=== PATIENT | male | born 1965 | race Caucasian/White ===

== ENCOUNTER → 2016-03-06 | Outpatient (CLI) | payer OTHER ==
--- NOTE | 2016-03-06 12:23 | KCIC ---
PROCEDURE MRI cervical spine without contrast. HISTORY Cervicalgia, radiculopathy, neck pain with pain into the left shoulder and arm for a few years TECHNIQUE Sagittal and axial T2, sagittal T1, sagittal STIR images were acquired of the cervical spine Contrast: None COMPARISON None FINDINGS Cervical cord caliber is within normal limits, no convincing focal signal abnormality allowing for artifact. There is no significant abnormality of the cervical medullary junction. Cervical vertebral body stature is maintained. There is straightening of the cervical spine. There is negligible anterior spondylolisthesis at C2-3. There is mild to moderate degenerative disc disease C5-C6, minimally at C4-5 and C6-7 and mild disc desiccation at other levels. There is no significant focal marrow edema. C2-3: Spinal canal and the neural foramina are adequate. C3-4: Spinal canal and neural foramina are adequate. There is negligible disc osteophyte complex. C4-5: There is anterior radial tear. There is minimal disc osteophyte complex. There is mild indentation upon the ventral thecal sac greatest in the far right lateral recess although spinal canal overall adequate. There is mild right uncovertebral degenerative change. Neural foramina are not significantly narrowed. C5-C6: There is a broad posterior disc osteophyte complex and shallow bulge. Central canal is borderline at 10 millimeters. There is mild uncovertebral degenerative change, also right greater than left facet degenerative change. There is very mild narrowing of the left neural foramen, right neural foramen adequate. C6-7: There is a minimal disc osteophyte complex and bulge. Central canal is adequate 11 millimeters. 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 Neural foramina are overall adequate. 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 Spinal canal and neural foramina are adequate. IMPRESSION 1. There is mild to moderate degenerative disc disease at C5-C6, to a lesser degree at C4-5 and C6-7. There is mild spondylosis. 2. There is no significant cervical spinal stenosis, mild indentation upon the ventral thecal sac by disc osteophyte complexes and bulges most notable at C5-C6. There is no significant cervical neural foramina compromise, minimal narrowing on the left at C5-C6. Electronically signed by: Cornelio Pittman MD (Mar 06, 2016 12:21:27)
== END | disposition home or self-care (01) ==
LOC: KCIC MRI 11:19
PROVIDERS: ATTEND Neurological Surgery
DX: M54.12 Radiculopathy, cervical region (principal); M50.322 Other cervical disc degeneration at C5-C6 level; M47.892 Other spondylosis, cervical region; M43.12 Spondylolisthesis, cervical region
CPT/HCPCS: 72141